=== PATIENT | male | born 2000 | race African-American/Black ===

== ENCOUNTER 2024-10-31 20:01 | Emergency (ER) | payer SELFPAY ==
[2024-10-31] MEDS ORDERED: NA CHLORIDE 0.9% 1,000 ML ONE (21:01)
[2024-10-31] MEDS ORDERED: ONDANSETRON 4 MG/2 ML VIAL ONE (21:01)
[2024-10-31 21:33] LABS: Absolute Lymphocytes (CBC) 0.7 K/uL (0.7-4.9); Absolute Monocytes 0.5 K/uL (0.1-1.3); Basophils % 0.1 % (0-1.3); Eosinophils % 0.6 % (0-4.4); Hematocrit 47.2 % (39.6-49.0); Hemoglobin 16.2 g/dL (13.6-17.9); Lymphocytes % 8.8 % (15.3-44.8); MCH 30.6 pg (27.0-35.0); MCHC 34.2 g/dL (32.0-36.0); MCV 89.5 fL (80-100); MPV 6.9 fL (7.6-11.3); Monocytes % 5.8 % (3.3-12.3); Neutrophils % 84.7 % (41.7-73.7); Nucleated Red Blood Cells % 0.1 % (0-0); Platelets 220 thou/uL (152-406); RBC Red Blood Cell Count 5.28 M/uL (4.33-5.43); Red Cell Distribution Width 12.3 % (12.1-15.2)
[2024-10-31 21:47] LABS: Albumin 4.2 g/dL (3.4-5.0); Albumin/Globulin Ratio 1.1 (1.1-1.8); Anion Gap 6.9 mEq/L (5.0-15.0); Bilirubin Total 1.1 mg/dL (0.2-1.0); Globulin 3.9 g/dL (2.3-3.5); Potassium 3.9 mEq/L (3.5-5.1); Protein, Total 8.1 g/dL (6.4-8.2)
--- NOTE | 2024-10-31 22:59 | EDPHYS ---
Physician Documentation [facility] Name: Luis Manuel Chao III Age: 24 yrs Sex: Male : 2000 Arrival Date: 10/31/2024 Time: 20:01 Bed 16 Private MD: ED Physician Vik Rocha HPI: 10/31 20:48 This 24 yrs old Black Male presents to ER via Ambulatory with complaints of Abdominal sb4 Pain, Nausea, Diarrhea. 20:49 The patient presents to the emergency department with nausea, diarrhea, abdominal pain. sb4 Onset: The symptoms/episode began/occurred today. Possible causes: bad food exposure, renée in the box. The symptoms are aggravated by nothing. The symptoms are alleviated by nothing. Associated signs and symptoms: The patient has no apparent associated signs or symptoms, Pertinent negatives: fever, GI bleeding, vomiting. The patient has not experienced similar symptoms in the past. The patient has not recently seen a physician. Historical: - Allergies: 20:18 No Known Allergies; ha1 - PMHx: 20:18 None; ha1 - PSHx: 20:18 BACK SURGERY; ha1 - Immunization history:: Adult Immunizations up to date. - Infectious Disease History:: Denies. - Social history:: Smoking status: Reported history of juuling and/or vaping. ROS: 20:49 Constitutional: Negative for fever, chills, and weight loss, sb4 20:49 Abdomen/GI: Positive for abdominal pain, nausea, diarrhea, 20:49 All other systems are negative, Exam: 20:49 Head/Face: Normocephalic, atraumatic. Eyes: Extra-ocular motions intact. Periorbital sb4 areas with no swelling, redness, or edema. Neck: Supple, full range of motion without nuchal rigidity, or vertebral point tenderness. Cardiovascular: Regular rate and rhythm with a normal S1 and S2. Respiratory: No increased work of breathing, no retractions or nasal flaring. Abdomen/GI: Soft, non-tender, no distension. Skin: Warm, dry with normal turgor. Normal color with no rashes, no lesions, and no evidence of cellulitis. 20:49 Constitutional: The patient appears alert, awake, uncomfortable, Vital Signs: 20:18 BP 133 / 87; Pulse 102; Resp 17 S; Temp 97.5(T); Pulse Ox 99% on R/A; Weight 117.93 kg; ha1 Height 5 ft. 8 in. ; Pain 8/10; 23:08 BP 141 / 89; Pulse 96; Resp 16; Pulse Ox 100% on R/A; jb4 20:18 Body Mass Index 39.53 (117.93 kg, 172.72 cm) ha1 20:18 Pain Scale: Adult ha1 MDM: 20:19 Medical Screening Exam initiated sb4 22:35 Data reviewed: vital signs, nurses notes, lab test result(s), and as a result, I will sb4 discharge patient. Counseling: I had a detailed discussion with the patient and/or guardian regarding the historical points, exam findings, and any diagnostic results supporting the discharge/admit diagnosis, lab results, to return to the emergency department if symptoms worsen or persist or if there are any questions or concerns that arise at home. 10/31 20:48 Order name: CBC with Diff; Complete Time: 21:45 sb4 10/31 20:48 Order name: CMP; Complete Time: 21:47 sb4 10/31 20:48 Order name: Lipase; Complete Time: 21:47 sb4 10/31 20:48 Order name: IV Saline Lock; Complete Time: 21:22 sb4 10/31 20:48 Order name: Labs collected and sent; Complete Time: 21:22 sb4 10/31 21:49 Order name: PO challenge; Complete Time: 22:20 sb4 Administered Medications: 21:34 Drug: Ondansetron IVP 4 mg IVP once; over 2 minutes Route: IVP; Site: right antecubital;jb4 22:20 Follow up: Response: No adverse reaction; Marked relief of symptoms; Nausea is decreasedjb4 21:34 Drug: NS 0.9% IV 1000 ml IV at 1 bolus Per protocol; to be given as a bolus over 60 jb4 minutes Route: IV; Rate: 1 bolus; Site: right antecubital; 22:34 Follow up: Response: No adverse reaction; IV Status: Completed infusion; IV Intake: jb4 1000ml Disposition: 11/01 04:13 Co-signature as Attending Physician, Vik Rocha MD I agree with the assessment sp4 and plan of care. I reviewed the patient's care provided by the Advanced Practice Provider and agree with the diagnosis and treatment plan. Disposition Summary: 10/31/24 22:58 Discharge Ordered Notes: Location: Home sb4 Problem: new sb4 Symptoms: have improved sb4 Condition: Stable sb4 Diagnosis - Viral gastroenteritis sb4 Followup: sb4 - With: Private Physician - When: As needed - Reason: Recheck today's complaints, Re-evaluation by your physician Discharge Instructions: - Discharge Summary Sheet sb4 - Viral Gastroenteritis, Adult, [id number] sb4 Forms: - Patient Portal Instructions sb4 - Leadership Thank You Letter sb4 Prescriptions: - ondansetron HCl 4 mg Oral tablet - take 1 tablet ORAL route every 6 hours As needed; 10 tablet; Refills: 0, sb4 Product Selection Permitted Signatures: Dispatcher [employer] Kris Alvarez, RN RN jb4 Ruth Moise RN RN ha1 Alejandra Granados, DEVON OSORIO sb4 Vik Rocha MD MD sp4
--- NOTE | 2024-10-31 22:59 | ER ---
Nurse's Notes [facility] Name: Luis Manuel Chao III Age: 24 yrs Sex: Male : 2000 Arrival Date: 10/31/2024 Time: 20:01 Bed 16 Private MD: Diagnosis: Viral gastroenteritis Presentation: 10/31 20:18 Chief complaint: Patient states: ABDOMINAL PAIN, NAUSEA, DIARRHEA. STARTED FOUR HOURS ha1 AGO. 20:18 Coronavirus screen: Client denies travel out of the [place] in the last 14 days. Ebola ha1 Screen: No symptoms or risks identified at this time. Initial Sepsis Screen: Does the patient meet any 2 criteria? No. Patient's initial sepsis screen is negative. Does the patient have a suspected source of infection? No. Patient's initial sepsis screen is negative. Risk Assessment: Do you want to hurt yourself or someone else? Patient reports no desire to harm self or others. Onset of symptoms was October 31, 2024. 20:18 Method Of Arrival: Ambulatory ha1 20:18 Acuity: SABA 3 ha1 Triage Assessment: 20:18 General: Appears uncomfortable, Behavior is cooperative. Pain: Complains of pain in ha1 abdomen Pain currently is 8 out of 10 on a pain scale. Quality of pain is described as aching. Neuro: Level of Consciousness is awake, alert, obeys commands, Oriented to person, place, time, situation. Cardiovascular: Patient's skin is warm and dry. Respiratory: Airway is patent Respiratory effort is even, unlabored, Respiratory pattern is regular, symmetrical. GI: Abdomen is round non-distended, Reports lower abdominal pain, upper abdominal pain, diarrhea, nausea. Historical: - Allergies: 20:18 No Known Allergies; ha1 - PMHx: 20:18 None; ha1 - PSHx: 20:18 BACK SURGERY; ha1 - Immunization history:: Adult Immunizations up to date. - Infectious Disease History:: Denies. - Social history:: Smoking status: Reported history of juuling and/or vaping. Screenin:20 [facility] ED Fall Risk Assessment (Adult) History of falling in the last 3 months, jb4 including since admission No falls in past 3 months (0 pts) Confusion or Disorientation No (0 pts) Intoxicated or Sedated No (0 pts) Impaired Gait No (0 pts) Mobility Assist Device Used No (0 pt) Altered Elimination No (0 pt) Score/Fall Risk Level 0 - 2 = Low Risk Oriented to surroundings, Maintained a safe environment. Abuse screen: Denies threats or abuse. Nutritional screening: No deficits noted. Tuberculosis screening: No symptoms or risk factors identified. Assessment: 21:20 General: Appears in no apparent distress. uncomfortable, Behavior is calm, cooperative, jb4 appropriate for age. Pain: Complains of pain in abdomen Pain does not radiate. Pain currently is 9 out of 10 on a pain scale. Neuro: Level of Consciousness is awake, alert, obeys commands, Oriented to person, place, time, situation. Cardiovascular: Patient's skin is warm and dry. Respiratory: Airway is patent Respiratory effort is even, unlabored, Respiratory pattern is regular, symmetrical. Derm: Skin is intact, Skin is pink, warm \T\ dry. Musculoskeletal: Circulation, motion, and sensation intact. Range of motion: intact in all extremities. 23:08 Reassessment: Patient appears in no apparent distress at this time. Patient and/or jb4 family updated on plan of care and expected duration. Pain level reassessed. Patient is alert, oriented x 3, equal unlabored respirations, skin warm/dry/pink. Vital Signs: 20:18 BP 133 / 87; Pulse 102; Resp 17 S; Temp 97.5(T); Pulse Ox 99% on R/A; Weight 117.93 kg; ha1 Height 5 ft. 8 in. ; Pain 8/10; 23:08 BP 141 / 89; Pulse 96; Resp 16; Pulse Ox 100% on R/A; jb4 20:18 Body Mass Index 39.53 (117.93 kg, 172.72 cm) ha1 20:18 Pain Scale: Adult ha1 ED Course: 20:04 Patient arrived in ED. gm2 20:05 Alejandra Granados PA-C is PHCP. sb4 20:05 Vik Rocha MD is Attending Physician. sb4 20:33 Triage completed. ha1 21:20 Kris Jeffries, VAUGHN is Primary Nurse. jb4 21:20 Patient has correct armband on for positive identification. Bed in low position. Call jb4 light in reach. Side rails up X 1. Provided Education on: plan of care. 21:20 No provider procedures requiring assistance completed. jb4 21:22 CBC with Diff Sent. vk 21:22 CMP Sent. vk 21:22 Lipase Sent. vk 21:23 Initial lab(s) drawn, by me, sent to lab. Inserted saline lock: 20 gauge in right vk antecubital area, using aseptic technique. Blood collected. Flushed with 10 mL NS. 23:08 IV discontinued, intact, bleeding controlled, No redness/swelling at site. Pressure jb4 dressing applied. Administered Medications: 21:34 Drug: Ondansetron IVP 4 mg IVP once; over 2 minutes Route: IVP; Site: right antecubital;jb4 22:20 Follow up: Response: No adverse reaction; Marked relief of symptoms; Nausea is decreasedjb4 21:34 Drug: NS 0.9% IV 1000 ml IV at 1 bolus Per protocol; to be given as a bolus over 60 jb4 minutes Route: IV; Rate: 1 bolus; Site: right antecubital; 22:34 Follow up: Response: No adverse reaction; IV Status: Completed infusion; IV Intake: jb4 1000ml Medication: 21:20 VIS not applicable for this client. jb4 Intake: 22:34 IV: 1000ml; Total: 1000ml. jb4 Outcome: 22:58 Discharge ordered by . sb4 23:08 Discharged to home ambulatory, jb4 23:08 Condition: stable 23:08 Discharge instructions given to patient, Instructed on discharge instructions, follow up and referral plans. medication usage, Demonstrated understanding of instructions, follow-up care, medications, Prescriptions given X 1, 23:11 Patient left the ED. jb4 Signatures: Kris Jeffries RN RN jb4 Ruth Moise RN RN [email or web address] Alejandra Granados, PA-C PA-C [email or web address] Debbie Khan Vivian vk
[2024-11-01 06:53] VITALS: TEMP 97.5
[2024-11-01 06:59] VITALS: BP 141/89; O2SAT 100
== END 2024-10-31 23:11 | disposition home or self-care (01) ==
LOC: ER 20:01
DX: A08.4 Viral intestinal infection, unspecified (principal)
CPT/HCPCS: 36415; 80053; 83690; 85025; 96361; 96374; 99284; J2405; J7030